=== PATIENT | male | born 1980 | race Caucasian/White ===

== ENCOUNTER 2022-06-20 13:12 | Emergency (ER) | payer OTHER, SELFPAY ==
--- NOTE | 2022-06-20 13:14 | ED.GENADULT ---
HPI - General Adult General Chief complaint: Anxiety Stated complaint: Unspecified Time Seen by Provider: 06/20/22 13:14 Source: patient and RN notes reviewed History of Present Illness HPI narrative: Patient is a 42-year-old male who presents the urgent care with complaints of anxiety due to alcohol withdrawal. Patient states his last drink was just an hour and a half ago. Patient states that he used to drink a lot of hard liquor and recently started drinking shots of fireball and beer to go to bed at night. Patient states that he has been drinking for at least the last 19 years and he does drink daily. Patient states he was clean for approximately 6 months and then started drinking again. Patient states he needs help trying to find a facility to do outpatient treatment. Patient is also requesting a work note due to missing the last couple days of work no other acute complaints. Patient currently denies of any chest pain, nausea, vomiting, fevers, chills. Patient states that when he is gone through limited withdrawal in the past he has never had the vomiting, abdominal pain, nausea. Patient does appear a little anxious but otherwise no acute distress noted. Patient aware of the plan of care. Some parts of this dictation were generated by voice recognition software and may contain typographical and/or grammatical inaccuracies. Related Data Home Medications Medication Instructions Recorded Confirmed buprenorphine HCl 300 mcg buccal See Rx Instructions .Route .COMPLEX 06/20/22 06/20/22 film ([place]) hydrocodone 10 mg-acetaminophen 1 tablet PO Q6H 06/20/22 06/20/22 325 mg tablet metoprolol succinate 50 mg 1 mg PO DAILY 06/20/22 06/20/22 tablet,extended release 24 hr rizatriptan 10 mg tablet See Rx Instructions .Route .COMPLEX 06/20/22 06/20/22 Allergies Allergy/AdvReac Type Severity Reaction Status Date / Time Penicillins Allergy Unknown unknown Unverified 06/20/22 13:30 metronidazole [From Flagyl] Allergy Unknown Verified 06/20/22 13:31 Review of Systems Review of Systems: CONSTITUTIONAL: Denies fever, chills, or sweats. EYES: Denies visual changes, redness, or discharge. ENT: Denies rhinorrhea, congestion, sore throat, or otalgia. CARDIOVASCULAR: Denies chest pain, palpitations, or edema. RESPIRATORY: Denies cough or dyspnea. GASTROINTESTINAL: Denies abdominal pain, nausea, vomiting, or diarrhea. GENITOURINARY: Denies dysuria or hematuria. SKIN: Denies rash or itching. MUSCULOSKELETAL: Denies back pain, joint pain, or myalgia. NEUROLOGIC: Denies headache, numbness, or weakness. PSYCHIATRIC: Reports of anxiety and alcohol abuse All other systems reviewed are negative, except as documented in HPI. [facility] Social History Social History Substance use type: painkillers Comments At the time of my signature, I reviewed and agree with the nursing past medical, surgical, social, and family history. There is no relevant family history pertinent to the patient complaint. Exam Narrative: GENERAL: This is a well-nourished, well-developed patient, in no apparent distress. HEAD: normocephalic, atraumatic. EYES: PERRL. Sclera clear/white. Vision is grossly intact. EARS: External ears normal NOSE: External nose normal with no obvious nasal discharge, nares without redness, no rhinorrhea. THROAT: Mucous membranes moist NECK: Neck supple CARDIOVASCULAR: Regular rate and rhythm without murmurs, gallops, or rubs. RESPIRATORY: Clear to auscultation. Breath sounds equal bilaterally. No wheezes, rales, or rhonchi. SKIN: warm, intact with no suspicious lesions or rash, good texture and turgor. NEURO: awake, alert, and oriented to person, place and time. There were no obvious focal neurologic abnormalities. EXTREMITIES: No clubbing, cyanosis, or edema. Course Course Level of Care: Express Care Visit Vital Signs Vital signs: Vital Signs Temperature 98.2 F 06/20/22 13:20 Pulse Rate 98 06/20/22 13:20 Respiratory
[2022-06-20 13:20] VITALS: BP 157/97; PULSE 98; RESP 22; TEMP 36.8; O2SAT 98
== END 2022-06-20 13:35 | disposition home or self-care (01) ==
PROVIDERS: Emergency Provider Nurse Practitioner Family
DX: F10.10 Alcohol abuse, uncomplicated (principal); I10 Essential (primary) hypertension; M19.90 Unspecified osteoarthritis, unspecified site
CPT/HCPCS: 99202; G0463